=== PATIENT | male | born 1990 | race Caucasian/White ===

== ENCOUNTER 2020-07-27 16:59 | Outpatient (REF) | payer OTHER, SELFPAY | END 2020-07-27 17:00 | disposition home or self-care (01) | LOC: HO.LAB 16:59 | PROVIDERS: Visit Provider Internal Medicine | DX: Z20.828 Contact with and (suspected) exposure to other viral communicable diseases (principal) | CPT/HCPCS: C9803; U0003 ==

== ENCOUNTER 2023-03-16 08:25 | Emergency (ER) | payer BC, OTHER, SELFPAY ==
[2023-03-16 08:30] VITALS: BP 115/71; PULSE 60; RESP 16; TEMP 36.4; O2SAT 98; BMI 22.0
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
[2023-03-16 10:40] VITALS: PULSE 75; RESP 18
[2023-03-16 11:03] VITALS: PULSE 70; RESP 18; O2SAT 98
--- NOTE | 2023-03-16 11:24 | PC.NURSE ---
GWENDOLYN Ortiz documented pt.'s split under crutches and crutch training, because steve was unable to see the Splint documentation screen on his computer.
== END 2023-03-16 10:45 | disposition home or self-care (01) ==
PROVIDERS: Emergency Provider Emergency Medicine Emergency Medical Services
DX: S92.355A Nondisplaced fracture of fifth metatarsal bone, left foot, initial encounter for closed fracture (principal); X50.1XXA Overexertion from prolonged static or awkward postures, initial encounter; Y93.02 Activity, running; Y92.9 Unspecified place or not applicable; Y99.9 Unspecified external cause status
CPT/HCPCS: 29515; 73600; 73630; 99284

== ENCOUNTER 2023-03-25 10:33 | Outpatient (AMB) | payer BC, SELFPAY ==
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
[2023-03-25 10:45] VITALS: BMI 22.8
== END 2023-03-25 11:38 | disposition home or self-care (01) ==
PROVIDERS: Visit Provider Physician Assistant
DX: S92.352A Displaced fracture of fifth metatarsal bone, left foot, initial encounter for closed fracture (principal)
CPT/HCPCS: 99203

== ENCOUNTER → 2023-03-25 10:33 | Outpatient (BNVA) | payer BC, OTHER, SELFPAY | PROVIDERS: Visit Provider Physician Assistant ==

== ENCOUNTER 2023-04-23 11:22 | Outpatient (AMB) | payer BC, SELFPAY ==
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
== END 2023-04-23 11:56 | disposition home or self-care (01) ==
PROVIDERS: Visit Provider Physician Assistant
DX: S92.352A Displaced fracture of fifth metatarsal bone, left foot, initial encounter for closed fracture (principal)
CPT/HCPCS: 99213

== ENCOUNTER 2023-04-23 13:00 | Outpatient (REF) | payer BC, OTHER, SELFPAY ==
--- NOTE | ~2023-04-23 | XR_ITS ---
EXAMINATION: XR FOOT, LEFT CLINICAL INFORMATION: Pain COMPARISON: Foot radiographs 04/12/2023 TECHNIQUE: AP, lateral, and oblique views of the left foot. FINDINGS: Comminuted mildly displaced fracture of the base of the fifth metatarsal in similar alignment. No lily bridging bony callus formation. Joint spaces are maintained. No tibiotalar joint effusion. Soft tissues are unremarkable. XR/XR foot LT min 3V IMPRESSION: Comminuted mildly displaced fracture of the base of the fifth metatarsal in similar alignment. No lily bridging bony callus formation.
== END 2023-04-23 13:01 | disposition home or self-care (01) ==
LOC: HO.HOSX 13:00
PROVIDERS: Visit Provider Physician Assistant
DX: S92.352D Displaced fracture of fifth metatarsal bone, left foot, subsequent encounter for fracture with routine healing (principal)
CPT/HCPCS: 73630

== ENCOUNTER 2023-06-03 08:13 | Outpatient (REF) | payer BC, SELFPAY ==
--- NOTE | ~2023-06-03 | XR_ITS ---
EXAMINATION: XR FOOT, LEFT CLINICAL INFORMATION: Left foot pain. COMPARISON: Left foot radiographs dated 04/23/2023. TECHNIQUE: AP, lateral, and oblique views of the left foot. FINDINGS: Chronic 5th metatarsal base fracture with unchanged anatomic alignment. There appears to be increase in new bone/osseous bridging when compared to the prior examination, however, exact degree of osseous bridging difficult to evaluate on plain radiographs. No new fracture or dislocation. No joint space narrowing or marginal osteophytes. No osseous erosion. XR/XR foot LT min 3V IMPRESSION: Chronic 5th metatarsal base fracture with unchanged anatomic alignment. There appears to be increased new bone/osseous bridging when compared to the prior examination, however, exact degree of osseous bridging difficult to evaluate on plain radiographs.
== END 2023-06-03 08:14 | disposition home or self-care (01) ==
LOC: HO.HOSX 08:13
PROVIDERS: Visit Provider Physician Assistant
DX: S92.355D Nondisplaced fracture of fifth metatarsal bone, left foot, subsequent encounter for fracture with routine healing (principal)
CPT/HCPCS: 73630

== ENCOUNTER 2023-06-03 11:26 | Outpatient (AMB) | payer BC, SELFPAY ==
--- NOTE | 2023-06-03 11:38 | A.OFFVIS_ITS ---
Intake Vital Signs 06/03/23 11:45 Height 5 ft 8 in Weight 150 lb BMI 22.8 Intake Visit Reasons: OV- left 5th metatarsal w xrays Intake Note: Cameron a 33 year old male who presents today for a follow up of left 5th metatarsal fx, DOI 03/15/23. Patient reports he has had some improvement with weight bear, stating applying more pressure. He has intermittent swelling, applying ice will help with swelling. He continues to wear boot as instructed. Allergies No Known Allergies [No Known Allergies*] Allergy (Unverified 06/03/23 11:45) HPI OV- left 5th metatarsal w xrays HPI Details 33-year-old male who returns to the [facility] today for a follow-up of left 5th metatarsal fracture, 03/15/23. He continues to have intermittent swelling and experiences occasional giving out of his knees. He states he has some improvement in his knee with weight bearing and applying pressure but he does c/o difficulty with ambulation. He uses crutches to ambulate. 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 There is tenderness at the base of the 5th metatarsal. Sensation intact. EHL intact. No pain along the mediolateral malleolus. Neurovascularly intact. Results Reviewed Results Reviewed: X-rays of the left foot obtained in the office today show a non-displaced f racture at the base of the 5th metatarsal with interval healing. Assessment & Plan Assessment & Plan (1) Fracture of fifth metatarsal bone of left foot: Code(s): S92.352A - Displaced fracture of fifth metatarsal bone, left foot, initial encounter for closed fracture Qualifiers: Encounter type: subsequent encounter Fracture type: closed Fracture alignment: nondisplaced Fracture healing: with routine healing Qualified Code(s): S92.355D - Nondisplaced fracture of fifth metatarsal bone, left foot, subsequent encounter for fracture with routine healing Plan He is going to transition to a regular street shoe. Over the next couple of weeks, he will begin physical therapy to work on ROM, gait training and strengthening. I would anticipate return to work in 4 weeks and he will see us back as needed if symptoms arise. Orders: Orders XR foot LT min 3V 06/03/23 M79.672 - Pain in left foot PT Evaluation and Treatment 06/03/23 S92.352A - Displaced fracture of fifth metatarsal bone, left foot, initial encounter for closed fracture Patient Instructions: Scribed for Lisa Andres PA-C, by Nba Santos medical services assistant, on 06/03/2023 at 11:30 AM EST. I, Lisa Andres PA-C, have personally reviewed and agree with the information entered by the scribe. Coding Level of Care Code Global (84792) Diagnoses Closed nondisplaced fracture of fifth metatarsal bone of left foot with routine healing, subsequent encounter S92.355D Encounter type: subsequent encounter Fracture type: closed Fracture alignment: nondisplaced Fracture healing: with routine healing
[2023-06-03 11:45] VITALS: BMI 22.8
== END 2023-06-03 12:21 | disposition home or self-care (01) ==
PROVIDERS: Visit Provider Physician Assistant
DX: S92.355D Nondisplaced fracture of fifth metatarsal bone, left foot, subsequent encounter for fracture with routine healing (principal)
CPT/HCPCS: 99213

== ENCOUNTER 2023-07-10 08:14 | Outpatient (REF) | payer BC, SELFPAY ==
--- NOTE | ~2023-07-10 | XR_ITS ---
EXAMINATION: XR FOOT, LEFT CLINICAL INFORMATION: Pain in left foot COMPARISON: 06/03/2023 TECHNIQUE: AP, lateral, and oblique views of the left foot. FINDINGS: Redemonstration of mildly displaced fracture at the base of the fifth metatarsal with similar alignment. Fracture line is still visible, but less conspicuous, suggesting some callus formation. The bones are diffusely demineralized. XR/XR foot LT min 3V IMPRESSION: Redemonstration of mildly displaced fracture at the base of the fifth metatarsal with similar alignment. Fracture line is still visible, but less conspicuous, suggesting some callus formation.
== END 2023-07-10 08:15 | disposition home or self-care (01) ==
LOC: HO.HOSX 08:14
PROVIDERS: Visit Provider Physician Assistant
DX: S92.355D Nondisplaced fracture of fifth metatarsal bone, left foot, subsequent encounter for fracture with routine healing (principal)
CPT/HCPCS: 73630

== ENCOUNTER 2023-07-10 13:21 | Outpatient (AMB) | payer BC, SELFPAY ==
--- NOTE | 2023-07-10 13:37 | A.OFFVIS_ITS ---
Intake Vital Signs 07/10/23 13:43 Height 5 ft 8 in Weight 150 lb BMI 22.8 Intake Visit Reasons: OV- left 5th metatarsal Intake Note: Cameron a 33 year old male who presents today for a follow up of left 5th metatarsal fx, DOI 03/15/23, states he has increase pain when walking. He is working with an P.T to improve ROM however he is not able to move his toe like his right toe. STates he has constant tingling and swelling. Reports he has returned to work. Allergies No Known Allergies [No Known Allergies*] Allergy (Unverified 07/10/23 13:43) HPI OV- left 5th metatarsal HPI Details 33-year-old [facility] a [facility] of left 5th metatarsal fracture, 03/15/23. He has returned to work and noticed he has incrased swelling at the end of his shift. He states he has pain in his foot which is aggravated with ambulation. He continues to work with physical therapy to improve his ROM but is unable to move his left toe as much as his right toe a nd is concerned . 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 He does have full sensation throughout the foot with inability to extend his big toe. He has a positive Tinel?s over the tarsal tunnel. Results Reviewed Results Reviewed: X-rays of the left foot obtained in the office today show a non-displaced fracture at the base of the 5th metatarsal with interval healing. Assessment & Plan Assessment & Plan (1) Fracture of fifth metatarsal bone of left foot: Code(s): S92.352A - Displaced fracture of fifth metatarsal bone, left foot, initial encounter for closed fracture Qualifiers: Encounter type: subsequent encounter Fracture alignment: nondisplaced Fracture healing: with routine healing Fracture type: closed Qualified Code(s): S92.355D - Nondisplaced fracture of fifth metatarsal bone, left foot, subsequent encounter for fracture with routine healing Plan At this time, we are going to send him to a EMG nerve study of the left foot to further evaluate the function of the perineal nerve. Once this is complete, we will see him back to discuss options. He was given a work note today to work 4 hours a day until I see him back for a follow-up as his current work status is exacerbating his symptoms. Orders: Orders XR foot LT min 3V 07/10/23 M79.672 - Pain in left foot NE nerve conduction velocity 07/10/23 R20.0 - Anesthesia of skin, R20.2 - Paresthesia of skin NE electromyogram (EMG) 07/10/23 R20.0 - Anesthesia of skin, R20.2 - Paresthesia of skin Patient Instructions: Scribed for Lisa Andres PA-C, by Nba Santos medical leader, on 07/10/2023 at 1:30 PM EST. I, Lisa Andres PA-C, have personally reviewed and agree with the information entered by the scribe. Coding Level of Care Code Global (97527) Diagnoses Closed nondisplaced fracture of fifth metatarsal bone of left foot with routine healing, subsequent encounter S92.355D Encounter type: subsequent encounter Fracture alignment: nondisplaced Fracture healing: with routine healing Fracture type: closed
[2023-07-10 13:43] VITALS: BMI 22.8
== END 2023-07-10 14:03 | disposition home or self-care (01) ==
PROVIDERS: Visit Provider Physician Assistant
DX: S92.355D Nondisplaced fracture of fifth metatarsal bone, left foot, subsequent encounter for fracture with routine healing (principal)
CPT/HCPCS: 99213

== ENCOUNTER 2023-07-14 08:00 | Outpatient (RCR) | payer BC, SELFPAY ==
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
--- NOTE | 2023-07-07 09:01 | MHC.PT.PR ---
[facility] [place] Office [place] Office [place] Office [address] Juanito Wasserman [address] [phone] F: [phone] F: [phone] F: [phone] F: [phone] Physical Therapy Progress Note Diagnosis: 5th metatarsal fx 03/15/23 Date of Surgery: Date of Evaluation: 06/17/23 Treatments to Date: 4 Cancellations to Date: 0 No Shows to Date: 2 Subjective: It was a hectic week last week. It is getting better and I am back at work full-time. My big toe still doesn't want to work Pain Score and Location: 5 L foot Objective Measures: Still lacks great toe extension and flexion strength 0-09/18 Assessment: He initially had some great toe extension (flicker < 25%) but this fatigued quickly and then he had minimal-no great toe movement with all other exercises. If therapist performed passive great toe extension, he is unable to hold position and it quickly falls back to resting state. He also has minimal-no great toe flexion. Recommended he f/u with ortho and/or PCP regarding this d/t ? compression nerve injury or possible injury at time of fall that was not noted d/t 5th met fx. Pt reports he will call to make an appointment with ortho at this time. PT Plan: Continue with PT Frequency and Duration: The patient will be seen 2x/week for 5 weeks Treatment Plan: Therapeutic Exercise Dynamic Therapeutic Activities Neuromuscular Re-ed Manual Therapies Taping Gait Home Exercise Program Patient Education Hot or Cold Pack Reviewed/ Agreed with Student Documentation: Therapist: Thank you once again for your referral.
--- NOTE | 2023-08-20 08:41 | MHC.PT.DC ---
[facility] [place] Office [place] Office [place] Office [address] Juanito Wasserman [address] [phone] F: [phone] F: [phone] F: [phone] F: [phone] Physical Therapy Discharge Report Diagnosis: 5th metatarsal fx 03/15/23 Date of Surgery: Date of Evaluation: 06/17/23 Date of Discharge: 08/20/23 Treatments to Date: 6 Cancellations to Date: 1 No Shows to Date: 4 Discharge Status: Independent with HEP Recommend MD Follow-up Visit Non-compliance Discharge Summary: He initially had some great toe extension (flicker < 25%) but this fatigued quickly and then he had minimal-no great toe movement with all other exercises. If therapist performed passive great toe extension, he is unable to hold position and it quickly falls back to resting state. He also has minimal-no great toe flexion. Recommended he f/u with ortho and/or PCP regarding this d/t ? compression nerve injury or possible injury at time of fall that was not noted d/t 5th met fx. He has made this f/u appointment and EMG was recommended; he is awaiting this appointment. He has also no showed final visits and is d/c at this time. Electronically signed by: Bronwyn Clarke PT Please sign and return to therapist. Thank you for your referral.
== END 2023-08-20 08:41 | disposition home or self-care (01) ==
LOC: HO.PT 08:00
PROVIDERS: Visit Provider Physician Assistant
DX: S92.352A Displaced fracture of fifth metatarsal bone, left foot, initial encounter for closed fracture (principal)
CPT/HCPCS: 97110; 97112; 97140; 97161; 97530

== ENCOUNTER 2023-07-28 06:37 | Emergency (ER) | payer BC, SELFPAY ==
--- NOTE | ~2023-07-28 | XR_ITS ---
EXAMINATION: XR CHEST CLINICAL INFORMATION: Shortness of breath and cough COMPARISON: None available. TECHNIQUE: 2 views of the chest were obtained. FINDINGS: Lungs grossly are clear. No pleural effusions. Heart and pulmonary vessels are normal. XR/XR chest 2V IMPRESSION: No active disease. No evidence for pneumonia or pneumothorax.
[2023-07-28 06:49] VITALS: BP 117/84; PULSE 72; RESP 20; TEMP 36.7; O2SAT 98; BMI 24.3
--- NOTE | 2023-07-28 07:15 | ED.URI ---
HPI - URI/Sore Throat General Chief Complaint: Upper Respiratory Symptoms Stated Complaint: Flu Like Symptoms Time Seen by Provider: 07/28/23 07:03 Source: patient Mode of arrival: ambulatory Limitations: no limitations History of Present Illness HPI Narrative: Few days of myalgias, cough and congestion MD elicited complaint: fever, cough, sore throat and nasal congestion Onset (ago): day(s) Consistency: constant Severity: mild Related Data Previous Rx's Medication Instructions Recorded acetaminophen 325 mg tablet 650 mg (2 x 325 mg) PO QID PRN 03/16/23 (Tylenol) pain #30 tabs ibuprofen 600 mg tablet 600 mg PO Q6H PRN pain #30 tabs 03/16/23 ibuprofen 800 mg tablet 800 mg PO Q8H PRN pain 30 days #90 04/23/23 tabs tramadol 50 mg tablet 50 mg PO BEDTIME 7 days #7 tabs 04/23/23 naproxen 500 mg tablet (Naprosyn) 500 mg PO BID #20 tabs 07/28/23 [id number] 2.5 20 ml PO Q4H PRN cough #118 mL 07/28/23 mg-5 mg-50 mg/5 mL oral liquid (Robitussin Cough and Cold CF) Allergies Allergy/AdvReac Type Severity Reaction Status Date / Time No Known Allergies Allergy Unverified 07/10/23 13:43 [No Known Allergies*] Review of Systems Review of Systems: Yes all other systems are reviewed and are negative Neurologic: Denies Sensory deficit (Neuro) PMFSH Social History Social History Advance Directives: No Advance Directives Information Provided: Yes Current occupational status: employed Current occupation: [employer] at [employer]/ left hand Physical Exam Vital Signs: Vital Signs: Last Vital Signs Temp 98.0 F 07/28/23 06:49 Pulse 72 07/28/23 06:49 Resp 20 07/28/23 06:49 BP 117/84 07/28/23 06:49 Pulse Ox 98 07/28/23 06:49 O2 Del Method Room Air 07/28/23 06:49 BMI result Body Mass Index 24.3 Const: General: healthy appearing Nutritional Appearance: average body habitus Orientation/consciousness: oriented to person and patient oriented x3 Limitations: no limitations HEENT: Head: Yes normal to inspection Ears: external ears normal General nose exam: Normal external nose present Mouth: Normal oral and palatal mucosa present and oropharynx normal Throat: Yes posterior oropharynx normal Eyes: General: appearance normal, both eyes and all related structures Neck: Other: supple Neck: Yes normal visual inspection Chest: Chest palpation & inspection: normal inspection of the chest Resp: Auscultation: clear to auscultation bilaterally Cardio: Jugular venous distension: no JVD Rate: regular rate Rhythm: regular rhythm Heart sounds: S1 normal heart sound present and S2 normal heart sound present GI: Inspection: Yes normal to inspection Palpation (GI): Soft to palpation, nontender and No hepatosplenomegaly present Auscultation: normal bowel sounds : General: Yes no CVA tenderness Back/Spine/Pelvis: Back: no CVA tenderness Skin: General skin exam: no rashes or lesions noted Neuro: General: oriented to person and patient oriented x3 Cranial nerves: Yes CN's II-XII intact bilaterally Motor exam (neuro): 5/5 motor strength present throughout Sensory Exam: No Sensory deficit (Neuro) Extrem: General: Yes normal to inspection Psych: Appearance: grossly normal Course Reevaluation(s) Reevaluation #1: COVID, flu, RSV negative, CXR negative will dc on nsaids and robitusson Time: 07:59 Medical Decision Making Differential Diagnosis Differential Diagnoses: The differential diagnosis associated with the presentation includes (pneumonia, flu, covid, rsv viral bronchitis) Lab Data MDM Lab Attestation statement: I reviewed the patient's lab results. (swab negative) Labs: Lab Results 07/28/23 Range/Units 06:49 Influenza Type A (PCR) NEGATIVE (Negative) Influenza Type B (PCR) NEGATIVE (Negative) RSV RNA Qual (PCR) NEGATIVE (Negative) SARS-CoV-2 RNA (RT-PCR) NEGATIVE (Negative) Independent Interpretation I performed an independent interpretation of an: Plain X-Ray (CXR no infiltrate) Prescription Management I considered prescription management with: Antibiotic (no evidence of pneumonia on xray) Discharge Plan Discharge Clinical Impression: Upper respiratory infection Patient Disposition: Home, Self-Care Instructions: Upper Respiratory Infection (ED), Viral Syndrome (ED) Prescriptions: New naproxen [Naprosyn] 500 mg tablet 500 mg PO BID Qty: 20 0RF Robitussin Cough and Cold CF 2.5-5-50 mg/5 mL liquid 20 ml PO Q4H PRN (Reason: cough) Qty: 118 0RF No Action ibuprofen 600 mg tablet 600 mg PO Q6H PRN (Reason: pain) Qty: 30 0RF acetaminophen [Tylenol] 325 mg tablet 650 mg PO QID PRN (Reason: pain) Qty: 30 0RF ibuprofen 800 mg tablet 800 mg PO Q8H PRN (Reason: pain) 30 Days Qty: 90 3RF tramadol 50 mg tablet 50 mg PO BEDTIME 7 Days Qty: 7 0RF Referrals: Physician,None [Primary Care Provider] - 5 days
[2023-07-28 07:43] LABS: Influenza A PCR NEGATIVE (Negative); Influenza B PCR NEGATIVE (Negative); Resp Syncy Virus RNA Qual PCR NEGATIVE (Negative); SARS COV2 PCR INHOUSE NEGATIVE (Negative)
[2023-07-28 08:11] VITALS: BP 125/78; PULSE 81; RESP 18; TEMP 36.6; O2SAT 98
--- NOTE | 2023-07-28 08:13 | PC.NURSE ---
Pt presents with c/o flu like sx (sore throat, cough, general mailaise). Pt respiratory viral panel negative. Pt chest xray negative. Pt dc'd with Naproxen and Cough medicine for management of sx. Dc reviewed with provider and this RN.
== END 2023-07-28 08:16 | disposition home or self-care (01) ==
PROVIDERS: Emergency Provider Emergency Medicine
DX: J06.9 Acute upper respiratory infection, unspecified (principal); Z20.822 Contact with and (suspected) exposure to COVID-19; Z20.828 Contact with and (suspected) exposure to other viral communicable diseases; R05.9 Cough, unspecified; J02.9 Acute pharyngitis, unspecified
CPT/HCPCS: 0241U; 71046; 99283; 99284

== ENCOUNTER 2023-08-21 12:59 | Outpatient (REF) | payer BC, SELFPAY ==
--- NOTE | 2023-08-21 13:04 | EMG_ITS ---
Chief complaint: Fracture of fifth metatarsal bone of left foot, after a fall. Left foot was swollen. He was on a boot for 3 months. Noted big toe extension weakness after boot was discontinued. Reason for referral: Evaluate for peroneal neuropathy Referred by: Lisa KHANNA Procedure done: Left lower extremity NCS/EMG Precautions and/or limitations: None The limb temperature was monitored continuously and remained between 32-36 degrees C during the performance of the NCS. Nerve Conduction Studies Anti Sensory Summary Table ?Stim Site NR Onset (ms) Norm Onset (ms) Peak (ms) Norm Peak (ms) O-P Amp (?V) Norm O-P Amp Site1 Site2 Delta-0 (ms) Dist (cm) Kingston (m/s) Norm Kingston (m/s) Left Sup Peron Anti Sensory (Ankle) Lateral Leg ? 2.7 3.3 <4.4 12.2 >5.0 Lateral Leg Ankle 2.7 14.0 52 Left Sural Anti Sensory (Lat Mall) Calf ? 2.8 3.4 <4.0 17.1 >5.0 Calf Lat Mall 2.8 14.0 50 Motor Summary Table ?Stim Site NR Onset (ms) Norm Onset (ms) O-P Amp (mV) Norm O-P Amp iAmp (mV) Amp (1st) (%) Site1 Site2 Delta-0 (ms) Dist (cm) Kingston (m/s) Norm Kingston (m/s) Left Peroneal Motor (Ext Dig Brev) Ankle NR <4.0 >2.5 Ankle Ext Dig Brev 0.0 B Fib NR B Fib Ankle 0.0 >40 Poplt NR Poplt B Fib 0.0 >40 Left Tibial Motor (Abd Phelps Brev) Ankle ? 3.5 <5 12.2 >2.5 16.4 100.0 Ankle Abd Phelps Brev 3.5 0.0 Knee ? 11.4 15.0 20.8 123.0 Knee Ankle 7.9 43.0 54 >40 EMG ?Side Muscle Nerve Root Ins Act Fibs Psw Amp Dur Poly Recrt Int Pat Comment Left AbdHallucis MedPlantar S1-2 Nml Nml Nml Nml Nml 0 Nml Complete Left AntTibialis Dp Br Peron L4-5 Nml Nml Nml Nml Nml 0 Nml Complete Left MedGastroc Tibial S1-2 Nml Nml Nml Nml Nml 0 Nml Complete Left VastusMed Femoral L2-4 Nml Nml Nml Nml Nml 0 Nml Complete Left ExtHallLong Dp Br Peron L5, S1 Incr 1+ 1+ Nml Nml 0 Nml Complete Left Peroneus Long Sup Br Peron L5-S1 Incr 1+ 1+ Nml Nml 0 Nml Complete Paraspinal EMG ?Side Muscle Nerve Root Ins Act Fibs Psw Comment Left Lumbar Upper Rami Nml Nml Nml Left Lumbar Mid Rami Nml Nml Nml Left Lumbar Lower Rami Nml Nml Nml FINDINGS: Left peroneal nerve did not show any responses. Left superficial peroneal sensory nerve was present, normal peak latency, but appeared to have small amplitude. Concentric needle EMG was performed in selected muscles of the left lower extremity and lumbar paraspinals. Study revealed Signs of electric abnormalities as shown in the table below. Left EHL and peroneal longus muscles showed increased insertional activity, PSWs and fibrillations. IMPRESSION: 1. This is an abnormal study. 2. 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 3. There is no electrodiagnostic evidence for tibial neuropathy. lumbosacral plexopathy, lumbar radiculopathy, or peripheral neuropathy. CLINICAL COMMENT: Rehab/PT for strengthening. Repeat EMG in 6 months. Thank you for your kind referral. Carey Blake MD, AARON Board Certified, [place] Board of Physical Medicine and Rehabilitation (ABPMR) Board Certified, [place] Board of Electrodiagnostic Medicine (ABEM) [place] [id number] [facility]
== END 2023-08-21 13:00 | disposition home or self-care (01) ==
LOC: HO.NEURO 12:59
PROVIDERS: Visit Provider Physician Assistant
DX: R20.0 Anesthesia of skin (principal); R20.2 Paresthesia of skin
CPT/HCPCS: 95886; 95908

== ENCOUNTER → 2023-08-21 13:04 | Outpatient (BNV) | payer BC, SELFPAY | PROVIDERS: Visit Provider Physical Medicine & Rehabilitation | DX: G57.82 Other specified mononeuropathies of left lower limb (principal) | CPT/HCPCS: 95886; 95908 ==

== ENCOUNTER 2024-05-29 14:09 | Emergency (ER) | payer OTHER, BC, SELFPAY ==
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
[2024-05-29 14:43] VITALS: BP 126/90; PULSE 78; RESP 16; TEMP 36.4; O2SAT 98; BMI 23.5
[2024-05-29] MEDS: Cyclobenzaprine HCl 5 MG TABLET PO (18:42)
[2024-05-29 19:20] VITALS: BP 114/75; PULSE 60; RESP 14; TEMP 36.8; O2SAT 98
== END 2024-05-29 19:21 | disposition home or self-care (01) ==
PROVIDERS: Emergency Provider Emergency Medicine Emergency Medical Services
DX: S16.1XXA Strain of muscle, fascia and tendon at neck level, initial encounter (principal); M79.604 Pain in right leg; M54.2 Cervicalgia; M79.641 Pain in right hand; V43.52XA Car driver injured in collision with other type car in traffic accident, initial encounter; Y93.89 Activity, other specified; Y92.488 Other paved roadways as the place of occurrence of the external cause; Y99.8 Other external cause status
CPT/HCPCS: 29125; 73120; 73590; 99283; 99284